=== PATIENT | female | born 1990 | race African-American/Black ===

== ENCOUNTER 2016-11-10 02:56 | Emergency (ER) | payer OTHER ==
[2016-11-10 03:28] LABS: Bilirubin Negative (Negative); Blood, Urine Large (Negative); Glucose, Urine (Dipstick) Negative (Negative); Ketone, Urine Negative (Negative); Nitrite Negative (Negative); Protein, Urine (Dipstick) Negative (Neg-Trace); Urobilinogen 0.2 mg/dL (0.2-1.0)
[2016-11-10 03:31] LABS: Bacteria/HPF None Seen HPF (None Seen); Hyaline Casts/LPF 4-6 HYALINE CAST LPF (0-3 Hyaline); RBC/HPF 21-50 HPF (0-3); Squamous Epithelial 0-3 HPF (0-3); WBC/HPF 21-50 HPF (0-3)
[2016-11-10 03:32] LABS: #Basophils 0.1 thou/uL (0.0-0.2); #Eosinphils 0.2 thou/uL (0.0-0.7); #Lymphocytes 3.2 thou/uL (1.20-3.40); #Monocytes 0.5 thou/uL (0.11-0.59); #Neutrophils 5.1 thou/uL (1.40-6.50); %Basophils 1.5 % (0.0-1.0); %Eosinophils 1.9 % (0.0-10.0); %Lymphocytes 34.7 % (21.0-51.0); %Monocytes 5.8 % (0.0-10.0); Hematocrit 42.8 % (36.0-47.0); Mean Platelet Volume 7.5 fL (7.4-10.4); Red Blood Cell (RBC) Count 4.46 mill/uL (4.20-5.40); White Blood Cell (WBC) Count 9.1 thou/uL (4.8-10.8)
== END 2016-11-10 05:30 | disposition home or self-care (01) ==
LOC: ERS 02:56
DX: N92.6 Irregular menstruation, unspecified (principal); N39.0 Urinary tract infection, site not specified; F41.9 Anxiety disorder, unspecified; F17.210 Nicotine dependence, cigarettes, uncomplicated
CPT/HCPCS: 36415; 81003; 81015; 81025; 85025; 86850; 86900; 86901; 99284

== ENCOUNTER 2017-08-15 16:21 | Emergency (ER) | payer BC, OTHER ==
[2017-08-15] MEDS ORDERED: Metoclopramide HCl 10 MG/2 ML VIAL ONE (16:57)
[2017-08-15] MEDS ORDERED: diphenhydrAMINE 50 MG/ML VIAL ONE (16:57)
[2017-08-15] MEDS ORDERED: Ketorolac Tromethamine 30 MG/ML VIAL ONE (16:57)
[2017-08-15] MEDS ORDERED: Acetaminophen 500 MG TAB ONE (16:57)
[2017-08-15 17:07] LABS: BHCG - Serum Negative (NEGATIVE); Pregs Control Background? CLEAR/WHITE (CLR/WHITE); Pregs Control Bar Appear? YES (CONTROL BAR)
== END 2017-08-15 18:15 | disposition home or self-care (01) ==
LOC: SCSER 16:21
DX: R51 Headache (principal); N92.6 Irregular menstruation, unspecified
CPT/HCPCS: 84703; 96365; 96375; J1200; J1885; J2765

== ENCOUNTER 2017-08-28 21:16 | Emergency (ER) | payer OTHER ==
[2017-08-28 22:04] LABS: Bilirubin Negative (Negative); Blood, Urine Large (Negative); Clarity CLOUDY (Clear); Glucose, Urine (Dipstick) Negative (Negative); Leukocyte Large (Negative); Nitrite Negative (Negative); Protein, Urine (Dipstick) 30 mg/dL (Neg-Trace); Specific Gravity, Urine 1.027 (1.002-1.036)
[2017-08-28 22:05] LABS: Pregnancy Test - Urine (BHCG) Negative (Negative); Pregu Control Background? CLEAR/WHITE (CLR/WHITE); Pregu Control Bar Appear? YES (CONTROL BAR); Specific Gravity 1.027 (1.002-1.036)
[2017-08-28 22:06] LABS: Bacteria/HPF Rare-Few HPF (None Seen); Hyaline Casts/LPF 4-6 HYALINE CAST LPF (0-3 Hyaline); Pathc Cast-AUWi Flag 1.45 (0-2.49); RBC/HPF GREATER THAN 50-TNTC HPF (0-3)
[2017-08-28 22:14] LABS: Hemoglobin 12.2 g/dL (12.0-16.0); Mean Corpuscular HGB CONC 33.2 g/dL (32.0-36.0); Mean Corpuscular Volume 90.5 fL (78.0-98.0); Mean Platelet Volume 8.1 fL (7.4-10.4); Platelet Count 183 thou/uL (130-400); RBC Distribution Width 14.2 % (11.5-14.5); Red Blood Cell (RBC) Count 4.05 mill/uL (4.20-5.40); White Blood Cell (WBC) Count 13.4 thou/uL (4.8-10.8)
[2017-08-28 22:29] LABS: Band 14 % (5-11); Eosinophils 1 % (0-10); Lymphocytes 8 % (21-51); MDiff Complete? YES; Monocytes 5 % (0-10); Neutrophil 72 % (42-75); Vacuoles SLIGHT
[2017-08-28 22:34] LABS: Anion Gap 10 mmol/L (10-20); BUN (Urea Nitrogen) 7 mg/dL (7.0-18.7); Calc. Creatinine Clearance 0 mL/min (70-130); Calcium 8.9 mg/dL (7.8-10.44); Carbon Dioxide 27 mmol/L (22-29); Chloride 106 mmol/L (98-107); Estimated GFR-MDRD Greater than 90; Glucose 90 mg/dL (70-105); Lipase 11 U/L (8-78); Potassium 3.6 mmol/L (3.5-5.1); Sodium 139 mmol/L (136-145)
== END 2017-08-28 22:50 | disposition left against medical advice (07) ==
LOC: ERS 21:16
DX: Z53.21 Procedure and treatment not carried out due to patient leaving prior to being seen by health care provider (principal)
CPT/HCPCS: 36415; 80048; 81003; 81015; 81025; 83690; 85025

== ENCOUNTER 2017-08-28 23:05 | Inpatient (IN) | payer BC, OTHER, SELFPAY ==
[2017-08-28] MEDS ORDERED: Morphine 4 MG/ML Carpuject ONE (23:26)
[2017-08-28 23:47] LABS: ALT (SGPT) 11 U/L (8-55); AST (SGOT) 11 U/L (5-34); Albumin 4.1 g/dL (3.5-5.0); Alkaline Phosphatase 70 U/L (40-150); Bilirubin, Direct 0.3 mg/dL (0.1-0.3); Bilirubin, Total 0.7 mg/dL (0.2-1.2); Protein, Total 6.8 g/dL (6.0-8.3)
[2017-08-29] MEDS ORDERED: Morphine 4 MG/ML Carpuject ONE (00:06)
[2017-08-29] MEDS ORDERED: Ondansetron HCl/PF 4 MG/2 ML Vial ONE ×2 (00:06→03:06)
[2017-08-29] MEDS ORDERED: Ciprofloxacin Lactate/D5W 400 mg/200 ml Premix ONE (02:24)
[2017-08-29] MEDS ORDERED: metroNIDAZOLE 500 MG/100 ML BAG ONE (03:39)
[2017-08-29] MEDS ORDERED: Sodium Chloride 0.9% 1,000 ML IV SCH (04:29)
[2017-08-29] MEDS ORDERED: Ondansetron HCl/PF 4 MG/2 ML Vial IVP PRN (04:29)
[2017-08-29] MEDS ORDERED: Ondansetron ODT 4 MG TAB SL PRN (04:29)
[2017-08-29] MEDS: Sodium Chloride 0.9% 1,000 ML IV SCH ×3 (04:46→20:16)
[2017-08-29] MEDS ORDERED: metroNIDAZOLE 500 MG in Premix Bag 1 BAG IVPB SCH (09:00)
--- NOTE | 2017-08-29 09:10 | HP ---
PRIMARY CARE PHYSICIAN: The patient currently does not have a primary care physician. CHIEF COMPLAINT: Abdominal pain. HISTORY OF PRESENT ILLNESS: Ms. Perez is a pleasant 27-year-old female that has a history significa nt for anxiety and she has had a previous ectopic years ago. She was in her usual state of health until about a week ago. She says she started having symptoms, which she thought could be due to gastroenteritis. She says she was having some abdominal discomfort and loose stools and she had taken some Pepto-Bismol, but it did not really help very much. During this time, she says she was st ill able to eat; however, she says she was eating a lot less than usual. Then, on Tuesday morning, jane iesha says she woke up with severe abdominal pain which she says she really cannot describe it other than it was greater than a 10/10. She says it was both sharp and cramping and more or less constant. It did not radiate anywhere. She says she still was able to eat. In fact, she was getting ready to ge [employer] up to go to work and says that she went to [employer] and got some food and was able to eat it and melissa p it down. There was no nausea or vomiting. She says that she continued to have a loose stool, but it was a dark green in color. She says that the pain was so bad she could barely stand or walk and p ut weight on her feet and as a result of this, she came to the ER for evaluation. In the ER, she had lab work done which was all essentially negative. She had a CT scan of the abdomen and pelvis, whic h was essentially normal for any evidence of appendicitis. The gallbladder looked normal and there w as some evidence of possible small bowel enteritis and she is being placed in observation as a result of this. The patient says that she has lost 10 pounds over the last week. She was originally said that she was able to eat, but then she backtracked and said that she has not eaten that much, but oth erwise no other symptoms. She does admit to taking some Advil and Motrin for headache that she had r ecently and she is a smoker. REVIEW OF SYSTEMS: All systems are reviewed and are negative except for that mentioned in the histor y of present illness. PAST MEDICAL HISTORY: Significant for anxiety. PAST SURGICAL HISTORY: She has had a right salpingectomy. ALLERGIES: No known drug allergies. SOCIAL HISTORY: She is single, has no children. She smokes a pack a day for the last 10 years. She did occasionally drinks. FAMILY HISTORY: Significant for heart disease and father that had hypertension and diabetes mellitus . CURRENT MEDICATIONS: None. PHYSICAL EXAMINATION: VITAL SIGNS: Blood pressure was 130/80, heart rate 87, respiratory rate of 18, temperature was 100.2 . GENERAL: She is a well-developed, well-nourished. She does not appear to be in any distress. HEENT: Pupils are equal, round, and reactive. Extraocular muscles are intact. Sclerae are anicteri c. Her throat, there is no erythema, no exudates. NECK: No adenopathy, no bruits. LUNGS: Clear to auscultation. I did not appreciate any wheezing or rales. CARDIOVASCULAR: She had a normal S1, S2. I did not appreciate an S3 or S4. No murmurs, no clicks, no rubs. ABDOMEN: Soft. She had some diffuse abdominal tenderness, but it was primarily in the upper quadran ts and in the epigastric region, it seemed to be the worse. There was no rebound and no involuntary guarding. There was no organomegaly and bowel sounds were present. EXTREMITIES: There is no edema. She had good distal pulses. NEUROLOGICAL: Grossly nonfocal. Her cranial nerves were intact and her muscle strength in both her upper and lower extremities are intact. SKIN AND INTEGUMENT: There are no skin changes. No rash. LABORATORY DATA AND IMAGING: White blood cell count 13.4, hemoglobin 12.2, hematocrit is 36.7, plate let count is 183. She did have 14% bands. Sodium was 139, potassium 3.6, chloride is 106, CO2 is 27 , BUN of 7, creatinine 0.79, glucose was 90. Lactic acid 0.9, calcium 8.9, total bilirubin was 0.7, AST 11, ALT 11, lipase was 11. She had a UA that had large blood and large leukocyte esterase, too n umerous to count RBCs. CT scan again was reported to be essentially negative. Also, there was no me ntion of any kidney stones. ASSESSMENT AND PLAN: This is a pleasant 27-year-old female that presents to the emergency room [facility] of severe abdominal pain, which has been more or less subacute starting with symptoms consiste nt with gastroenteritis and then culminating in severe more or less epigastric pain. Her lab work is essentially all negative except for slightly elevated white blood cell count. CT scan was consisten t with an enteritis. She will be placed in observation primarily because her pain is out of proporti on with what would normally be considered associated with a gastroenteritis. We will monitor her ove rnight and reevaluate her at that time. Also given her history of smoking and NSAID use, we will als o place her on IV Protonix in the event that this is some type of peptic ulcer disease. Also noted t hat she had some hematuria on her urinalysis; however, her CT scan did not demonstrate any stones; ho wever, it is possible that she may have [id number] stone. Therefore, we will continue to keep this in the differential; however, the distribution of her pain is not consistent with nephrolithiasi s or kidney disease. Otherwise, we will monitor overnight and if her symptoms continue, then conside r a GI evaluation in the a.m. The urine test was negative.
[2017-08-29] MEDS ORDERED: Acetaminophen 325 MG TAB PO PRN (09:19)
[2017-08-29] MEDS ORDERED: Ondansetron ODT 4 MG TAB PO PRN (09:19)
[2017-08-29] MEDS ORDERED: Mag-Al Plus 1200 MG/1200 MG/120 MG/30 ML UDCUP PO PRN (09:19)
[2017-08-29] MEDS ORDERED: Pantoprazole 40 MG VIAL IVP SCH (09:30)
[2017-08-29] MEDS: metroNIDAZOLE 500 MG in Premix Bag 1 BAG IVPB SCH ×2 (10:51→17:43)
--- NOTE | 2017-08-29 12:45 | CT ---
PRELIMINARY REPORT/[facility]/EMERGENTY AFTER-HOURS PROCEDURE CT Abdomen and Pelvis With Intravenous Contrast EXAM DATE/TIME: 08/29/2017 12:56 AM CLINICAL HISTORY: 27 years old, female; Pain; Abdominal pain; Patient HX: Patient presents for evaluation of abdominal pain, patient presents for evaluation of abdominal distention. TECHNIQUE: Axial computed tomography images of the abdomen and pelvis with intravenous contrast. Coronal reformatted images were created and reviewed. CONTRAST: 85 ml of [id number] administered intravenously. COMPARISON: No relevant prior studies available. FINDINGS: Lower thorax: No acute findings. ABDOMEN: Liver: Normal. No mass. Gallbladder and bile ducts: Normal. No calcified stones. No ductal dilation. Pancreas: Normal. No ductal dilation. Spleen: Normal. No splenomegaly. Adrenals: Normal. No mass. Kidneys and ureters: Normal. No hydronephrosis. Stomach and bowel: Multiple small bowel loops with moderate approximately 6-8 mm wall thickening in t he left abdomen. No evidence of bowel obstruction. Appendix: Cecum low within the pelvis, appendix not definitely seen. PELVIS: Bladder: Unremarkable as visualized. Reproductive: Uterus appears within normal limits. Ovoid 4 cm hypodensity in left ovary. ABDOMEN and PELVIS: Intraperitoneal space: Normal. No free air. No significant fluid collection. Bones/joints: No acute fracture. No dislocation. Soft tissues: Unremarkable. Vasculature: Normal. No abdominal aortic aneurysm. Lymph nodes: Normal. No enlarged lymph nodes. IMPRESSION: 1. Findings suspicious for moderate inflammation of the left abdominal small bowel- enteritis. 2. No evidence of bowel obstruction. 3. Cecum low within the pelvis, appendix not definitely seen. 4. Ovoid 4 cm left ovarian cyst. Thank you for allowing us to participate in the care of your patient. Dictated and Authenticated by: Robin Samuels MD 08/29/2017 2:06 AM Central Time ([place] & [place]) FINAL REPORT CT ABDOMEN AND PELVIS WITH CONTRAST: HISTORY: Abdominal pain. Elevated white count. COMPARISON: CT abdomen and pelvis from 2008. FINDINGS: Findings and impression are concordant with the preliminary report. POS: [facility]
[2017-08-29] MEDS: Pantoprazole 40 MG VIAL IVP SCH (20:09)
[2017-08-29] MEDS: Ondansetron HCl/PF 4 MG/2 ML Vial IVP PRN (21:56)
[2017-08-30] MEDS: metroNIDAZOLE 500 MG in Premix Bag 1 BAG IVPB SCH ×3 (03:49→18:03)
[2017-08-30] MEDS: Sodium Chloride 0.9% 1,000 ML IV SCH ×3 (03:49→22:23)
[2017-08-30] MEDS: Ondansetron HCl/PF 4 MG/2 ML Vial IVP PRN ×2 (03:49→15:33)
[2017-08-30 05:14] LABS: #Eosinphils 0.1 thou/uL (0.0-0.7); #Lymphocytes 0.9 thou/uL (1.20-3.40); #Monocytes 0.5 thou/uL (0.11-0.59); #Neutrophils 4.3 thou/uL (1.40-6.50); %Basophils 0.1 % (0.0-1.0); %Eosinophils 0.9 % (0.0-10.0); %Lymphocytes 15.2 % (21.0-51.0); %Monocytes 9.2 % (0.0-10.0); %Neutrophils 74.6 % (42.0-75.0); Hemoglobin 10.1 g/dL (12.0-16.0); Mean Corpuscular HGB CONC 32.3 g/dL (32.0-36.0); Mean Corpuscular Hemoglobin 29.6 pg (27.0-31.0); Mean Corpuscular Volume 91.6 fL (78.0-98.0); Mean Platelet Volume 8.5 fL (7.4-10.4); Platelet Count 155 thou/uL (130-400); RBC Distribution Width 13.9 % (11.5-14.5); Red Blood Cell (RBC) Count 3.41 mill/uL (4.20-5.40); White Blood Cell (WBC) Count 5.7 thou/uL (4.8-10.8)
[2017-08-30 05:57] LABS: Anion Gap 12 mmol/L (10-20); BUN (Urea Nitrogen) 4 mg/dL (7.0-18.7); Calc. Creatinine Clearance 86 mL/min (70-130); Calcium 8.4 mg/dL (7.8-10.44); Carbon Dioxide 22 mmol/L (22-29); Chloride 107 mmol/L (98-107); Estimated GFR-MDRD Greater than 90; Glucose 89 mg/dL (70-105); Potassium 3.2 mmol/L (3.5-5.1); Sodium 138 mmol/L (136-145)
[2017-08-30] MEDS: Pantoprazole 40 MG VIAL IVP SCH ×2 (08:30→21:30)
--- NOTE | 2017-08-30 10:05 | CON ---
DATE OF CONSULTATION: 08/30/2017 REASON FOR CONSULTATION: Bradycardia. HISTORY OF PRESENT ILLNESS: Ms. Perez is a very pleasant 27-year-old - [place] female, who comes to the hospital for abdominal pain. She was diagnosed with an enteritis and has been on pain medications including morphine as well as antibiotics. Vital signs were drawn overnight at about 4-5 a.m. and she was noted to be bradycardic in the 40s. So, an EKG was done and Cardiology consulted. The EKG showed sinus bradycardia in the mid 40s. She has a very short FL interval, but no clear evidence of an AV block. She is completely asymptomatic. She states that they worked her up for this and they kept asking if she was fine. She stated she felt just fine. She denies any lightheadedness , no syncope or presyncope. She has never had a syncopal spell in the past. PAST MEDICAL HISTORY: Anxiety. PAST SURGICAL HISTORY: Right salpingectomy. ALLERGIES: No known drug allergies. OUTPATIENT MEDICATIONS: None. SOCIAL HISTORY: Smokes a pack a day for the last 10 years. Drinks occasionally. No drug use. FAMILY HISTORY: Heart disease in father, hypertension, and diabetes. REVIEW OF SYSTEMS: A 12-point review of systems was done and was all negative unless stated in the history of present illness. PHYSICAL EXAMINATION: VITAL SIGNS: Temperature 98.3, pulse 51, respiratory rate 14, satting 96% on room air, blood pressure 116/71. GENERAL: Awake, alert, oriented x3, in no distress. HEENT: Normocephalic, atraumatic. NECK: Supple. LUNGS: Clear. CARDIOVASCULAR: S1 and S2, no S3 or S4, no murmurs. ABDOMEN: Soft with good bowel sounds. EXTREMITIES: No edema. SKIN: Warm and dry. LABORATORY WORK: Reviewed. CBC was reviewed. Chemistries were reviewed. Her potassium was low at 3.2, otherwise unremarkable. EKG was reviewed, sinus bradycardia. CT of abdomen and pelvis was reviewed. ASSESSMENT AND PLAN: Sinus bradycardia: This is while she was sleeping; however, at rest on my evaluation, she was fully awake and she was bradycardic in the mid 40s, but completely asymptomatic. I stood her up and walked her around; then her heart rate just by standing up went to 55-60 and then when walking around it went up to the 70. She felt just fine doing so. No lightheadedness and completely asymptomatic. At this point, this is most likely related to morphine or this may just be her baseline. Because she is asymptomatic, I do not think there is any further workup that will be needed. We will get an echocardiogram and repeat an EKG for now, and if this is unremarkable, I think there are no further recommendations from the cardiac standpoint. Thank you for this particular patient. We will follow. YASMIN
[2017-08-30 11:12] LABS: Magnesium 1.7 mg/dL (1.6-2.6); Phosphorus 2.2 mg/dL (2.3-4.7)
--- NOTE | 2017-08-30 12:34 | EKG ---
Test Reason : STAT Blood Pressure : / mmHG Vent. Rate : 046 BPM Atrial Rate : 023 BPM P-R Int : 080 ms QRS Dur : 128 ms QT Int : 492 ms P-R-T Axes : 000 -35 085 degrees QTc Int : 430 ms Marked sinus bradycardia with short OH with Fusion complexes Left axis deviation Non-specific intra-ventricular conduction block Possible Anterolateral infarct , age undetermined Abnormal ECG No previous ECGs available Confirmed by JESSICA SCHULZ, DR. Marie (4) on 08/30/2017 12:34:30 PM Referred By: VIRAL Confirmed By:DR. Frank LOPEZ MD
--- NOTE | 2017-08-30 12:35 | EKG ---
Test Reason : Blood Pressure : / mmHG Vent. Rate : 052 BPM Atrial Rate : 052 BPM P-R Int : 128 ms QRS Dur : 074 ms QT Int : 452 ms P-R-T Axes : 078 090 060 degrees QTc Int : 420 ms Sinus bradycardia with sinus arrhythmia Rightward axis Borderline ECG When compared with ECG of 30-AUG-2017 10:44, (Unconfirmed) Fusion complexes are no longer Present Left bundle branch block is no longer Present Confirmed by JESSICA SCHULZ, SVero (4) on 08/30/2017 12:35:09 PM Referred By: WILLA Confirmed By:DR. Frank LOPEZ MD
--- NOTE | 2017-08-30 12:35 | EKG ---
Test Reason : Blood Pressure : / mmHG Vent. Rate : 046 BPM Atrial Rate : 046 BPM P-R Int : 000 ms QRS Dur : 126 ms QT Int : 486 ms P-R-T Axes : 096 -31 087 degrees QTc Int : 425 ms Marked sinus bradycardia with Fusion complexes Left axis deviation Left bundle branch block Abnormal ECG No previous ECGs available Confirmed by JESSICA SCHULZ, DR. Marie (4) on 08/30/2017 12:34:56 PM Referred By: WILLA Confirmed By:DR. Frank LOPEZ MD
[2017-08-30] MEDS ORDERED: Potassium Chloride 20 MEQ TAB PO SCH (12:45)
[2017-08-30] MEDS: K-Phos Neutral 250 MG TAB PO SCH (18:02)
[2017-08-30] MEDS: cefTRIAXone\\ROCEPHIN 1 GM in Sodium Chloride 0.9% 100 ML IVPB SCH (18:02)
[2017-08-30] MEDS: Potassium Chloride 20 MEQ TAB PO SCH (18:02)
--- NOTE | 2017-08-30 20:31 | PDOC.PN ---
- Subjective Encounter Start Date: 08/30/17 Encounter Start Time: 14:00 Patient seen and examined for Acute Gastroenteritis. Abd pain improving. No new complaints. No overnight events - Objective Resuscitation Status: Resuscitation Status FULL:Full Resuscitation MAR Reviewed: Yes Vital Signs & Weight: Vital Signs (12 hours) Temp Pulse Resp BP BP Pulse Ox 08/30/17 20:14 98.4 F 50 L 20 120/77 98 08/30/17 15:07 97.5 F L 50 L 20 135/77 100 08/30/17 12:36 98 08/30/17 11:36 97.6 F 49 L 16 148/99 H 100 08/30/17 08:30 98.3 F 51 L 14 Weight Admit Weight 94 lb 12.78 oz Weight 112 lb 11.2 oz I&O: 08/29/17 08/30/17 08/31/17 06:59 06:59 06:59 Intake Total 615 5780 2485 Output Total 900 200 Balance 615 4380 2285 Result Diagrams: 08/30/17 04:39 08/30/17 04:39 Additional Labs: Laboratory Tests 08/30/17 04:39 Phosphorus 2.2 L Magnesium 1.7 Phys Exam - Physical Examination Constitutional: NAD Respiratory: no wheezing, no rales, no rhonchi, clear to auscultation bilateral Cardiovascular: RRR, no rub Gastrointestinal: soft, non-tender, no distention, positive bowel sounds Musculoskeletal: no edema Neurological: moves all 4 limbs Psychiatric: A&O x 3 Dx/Plan (1) Acute infective gastroenteritis Code(s): A09 - INFECTIOUS GASTROENTERITIS AND COLITIS, UNSPECIFIED Status: Acute (2) Sinus bradycardia Code(s): R00.1 - BRADYCARDIA, UNSPECIFIED Status: Acute (3) Electrolyte abnormality Code(s): E87.8 - OTH DISORDERS OF ELECTROLYTE AND FLUID BALANCE, NEC Status: Acute Comment: Hypokalemia/ Hypophosphatemia (4) Anxiety Code(s): F41.9 - ANXIETY DISORDER, UNSPECIFIED Status: Chronic - Plan DVT proph w/SCDs * Await Echo * Cardio input appreciated * Cont Flagyl * Change Cipro to Cefriaxone (Nausea after Cipro) * Replace electrolytes * Cont IVF * AM labs * Advance diet Review of Systems - Review of Systems Respiratory: negative: Cough, Dry, Shortness of Breath, Hemoptysis, SOB with Excertion, Pleuritic Pain, Sputum, Wheezing Cardiovascular: negative: chest pain, palpitations, orthopnea, paroxysmal nocturnal dyspnea, edema, light headedness, other Gastrointestinal: Abdominal Pain. negative: Nausea, Vomiting, Diarrhea, Constipation, Melena, Hematochezia, Other - Medications/Allergies Allergies/Adverse Reactions: Allergies Allergy/AdvReac Type Severity Reaction Status Date / Time No Known Drug Allergies Allergy Verified 01/28/14 14:27 Medications: Current Medications Acetaminophen (Tylenol) 650 mg PO Q4H PRN PRN Reason: Headache/Fever or Pain Al Hydroxide/Mg Hydroxide (Maalox Plus) 30 ml PO DAILYPRN PRN PRN Reason: Heartburn or Indigestion Sodium Chloride (Normal Saline 0.9%) 1,000 mls @ 125 mls/hr IV .Q8H [facility] Last Admin: 08/30/17 11:44 Dose: 1,000 mls Metronidazole 500 mg/ Device 100 mls @ 100 mls/hr IVPB 0300,1100,1900 [facility] Last Admin: 08/30/17 18:03 Dose: 100 mls Ceftriaxone Sodium 1 gm/ (Sodium Chloride) 100 mls @ 200 mls/hr IVPB Q24HR [facility] Last Admin: 08/30/17 18:02 Dose: 100 mls Morphine Sulfate (Morphine) 2 mg SLOW IVP Q4H PRN PRN Reason: Pain Last Admin: 08/30/17 11:48 Dose: 2 mg Ondansetron HCl (Zofran Odt) 4 mg PO Q6H PRN PRN Reason: Nausea/Vomiting Ondansetron HCl (Zofran) 4 mg IVP Q6H PRN PRN Reason: Nausea/Vomiting Last Admin: 08/30/17 15:33 Dose: 4 mg Pantoprazole Sodium (Protonix) 40 mg IVP Q12HR [facility] Last Admin: 08/30/17 08:30 Dose: 40 mg Phosphorus (Kphos Neutral) 250 mg PO TID-[facility] Last Admin: 08/30/17 18:02 Dose: 250 mg Potassium Chloride (K-Dur) 20 meq PO BID-[facility] Stop: 08/31/17 08:01 Last Admin: 08/30/17 18:02 Dose: 20 meq Sodium Chloride (Flush - Normal Saline) 10 ml IVF PRN PRN PRN Reason: Saline Flush
[2017-08-30] MEDS ORDERED: Promethazine HCl 25 MG/ML VIAL IVPB SCH (21:30)
[2017-08-30] MEDS ORDERED: Promethazine HCl 12.5 MG in Sodium Chloride 0.9% 50 ML IVPB SCH (21:45)
[2017-08-31] MEDS: Sodium Chloride 0.9% 1,000 ML IV SCH ×3 (00:55→09:19)
[2017-08-31] MEDS: metroNIDAZOLE 500 MG in Premix Bag 1 BAG IVPB SCH ×3 (02:52→18:24)
[2017-08-31 05:00] LABS: Anion Gap 13 mmol/L (10-20); BUN (Urea Nitrogen) 4 mg/dL (7.0-18.7); Calc. Creatinine Clearance 104 mL/min (70-130); Carbon Dioxide 20 mmol/L (22-29); Chloride 109 mmol/L (98-107); Estimated GFR-MDRD Greater than 90; Glucose 78 mg/dL (70-105); Phosphorus 2.4 mg/dL (2.3-4.7); Potassium 3.7 mmol/L (3.5-5.1); Sodium 138 mmol/L (136-145)
[2017-08-31 06:56] VITALS: BMI 20.5
[2017-08-31] MEDS: K-Phos Neutral 250 MG TAB PO SCH ×3 (09:19→16:48)
[2017-08-31] MEDS: Potassium Chloride 20 MEQ TAB PO SCH (09:19)
[2017-08-31] MEDS: Ondansetron HCl/PF 4 MG/2 ML Vial IVP PRN (09:19)
[2017-08-31] MEDS: Pantoprazole 40 MG VIAL IVP SCH ×2 (09:19→20:57)
--- NOTE | 2017-08-31 11:52 | PDOC.CTH ---
Cardiology Progress Note - Subjective She is doing well. No syncope, presyncope, lightheadedness. - Objective Vital Signs Temp Pulse Resp BP BP Pulse Ox 08/31/17 11:31 98.0 F 60 16 121/83 100 08/31/17 08:00 98.1 F 48 L 16 100 08/31/17 07:31 98.1 F 48 L 16 109/70 100 08/31/17 03:53 98.1 F 51 L 16 133/53 L 99 08/30/17 23:59 98.2 F 50 L 16 122/72 99 Admit Weight 94 lb 12.78 oz Weight 112 lb 08/30/17 08/31/17 09/01/17 06:59 06:59 06:59 Intake Total 5780 4665 Output Total 900 200 Balance 4880 4465 - Physical Examination General/Neuro: alert & oriented x3, NAD Neck: no JVD present Lungs: CTA, unlabored respirations Heart: RRR Abdomen: NT/ND Extremities: other: (no edema) - Labs Result Diagrams: 08/30/17 04:39 08/31/17 04:24 - Assessment/Plan 1. Bradycardia, sinus, asymptomatic. 2. Enteritis. PLAN: - Asymptomatic from her bradycardia. - Normal Echo. - No new reds. - Will sign off. Please call with any questions.
--- NOTE | 2017-08-31 14:17 | PDOC.PN ---
- Subjective Encounter Start Date: 08/31/17 Encounter Start Time: 14:12 Subjective: slight abd pain but no vomiting or diarrhea - Objective Resuscitation Status: Resuscitation Status FULL:Full Resuscitation MAR Reviewed: Yes Vital Signs & Weight: Vital Signs (12 hours) Temp Pulse Resp BP BP Pulse Ox 08/31/17 12:00 100 08/31/17 11:31 98.0 F 60 16 121/83 100 08/31/17 08:00 98.1 F 48 L 16 100 08/31/17 07:31 98.1 F 48 L 16 109/70 100 08/31/17 03:53 98.1 F 51 L 16 133/53 L 99 Weight Admit Weight 94 lb 12.78 oz Weight 112 lb I&O: 08/30/17 08/31/17 09/01/17 06:59 06:59 06:59 Intake Total 5780 4665 Output Total 900 200 Balance 4880 4465 Result Diagrams: 08/30/17 04:39 08/31/17 04:24 Additional Labs: Laboratory Tests 08/30/17 08/30/17 08/31/17 04:39 04:39 04:24 Potassium 3.2 L 3.7 Phosphorus 2.4 Magnesium 1.7 labs reviewed Phys Exam - Physical Examination Constitutional: NAD HEENT: PERRLA, moist MMs, sclera anicteric, oral pharynx no lesions Neck: no nodes, no JVD, supple, full ROM Respiratory: no wheezing, no rales, no rhonchi, clear to auscultation bilateral Cardiovascular: RRR, no significant murmur Gastrointestinal: soft, no distention, positive bowel sounds TTP epigastrium Musculoskeletal: no edema, pulses present Neurological: non-focal, normal sensation, moves all 4 limbs Psychiatric: normal affect, A&O x 3 Skin: no rash Dx/Plan (1) Acute infective gastroenteritis Code(s): A09 - INFECTIOUS GASTROENTERITIS AND COLITIS, UNSPECIFIED Status: Acute (2) Sinus bradycardia Code(s): R00.1 - BRADYCARDIA, UNSPECIFIED Status: Acute Comment: asymptomatic (3) Electrolyte abnormality Code(s): E87.8 - OTH DISORDERS OF ELECTROLYTE AND FLUID BALANCE, NEC Status: Resolved Comment: Hypokalemia/ Hypophosphatemia (4) Anxiety Code(s): F41.9 - ANXIETY DISORDER, UNSPECIFIED Status: Chronic - Plan advance diet as tolerated.DC home if tolerates on PO ABx -: cont IV ABx empoirically -: ECHO WNL. HR better withoit intervention.monitor -: reduce IVF. -: Potassium/Mag normla today * . Review of Systems - Review of Systems Constitutional: weakness ENT: negative: Ear Pain, Ear Discharge, Nose Pain, Nose Discharge, Nose Congestion, Mouth Pain, Mouth Swelling, Throat Pain, Throat Swelling, Other Respiratory: negative: Cough, Dry, Shortness of Breath, Hemoptysis, SOB with Excertion, Pleuritic Pain, Sputum, Wheezing Cardiovascular: negative: chest pain, palpitations, orthopnea, paroxysmal nocturnal dyspnea, edema, light headedness, other Gastrointestinal: Abdominal Pain. negative: Nausea, Vomiting, Diarrhea, Constipation, Melena, Hematochezia, Other Genitourinary: negative: Dysuria, Frequency, Incontinence, Hematuria, Retention , Other Musculoskeletal: negative: Neck Pain, Shoulder Pain, Arm Pain, Back Pain, Hand Pain, Leg Pain, Foot Pain, Other Skin: negative: Rash, Lesions, Mike, Bruising, Other Neurological: negative: Weakness, Numbness, Incoordination, Change in Speech, Confusion, Seizures, Other - Medications/Allergies Allergies/Adverse Reactions: Allergies Allergy/AdvReac Type Severity Reaction Status Date / Time No Known Drug Allergies Allergy Verified 01/28/14 14:27 Medications: Current Medications Acetaminophen (Tylenol) 650 mg PO Q4H PRN PRN Reason: Headache/Fever or Pain Al Hydroxide/Mg Hydroxide (Maalox Plus) 30 ml PO DAILYPRN PRN PRN Reason: Heartburn or Indigestion Metronidazole 500 mg/ Device 100 mls @ 100 mls/hr IVPB 0300,1100,1900 [facility] Last Admin: 08/31/17 12:57 Dose: 100 mls Ceftriaxone Sodium 1 gm/ (Sodium Chloride) 100 mls @ 200 mls/hr IVPB Q24HR [facility] Last Admin: 08/30/17 18:02 Dose: 100 mls Sodium Chloride (Normal Saline 0.9%) 1,000 mls @ 50 mls/hr IV .Q20H [facility] Last Admin: 08/31/17 09:19 Dose: Not Given Morphine Sulfate (Morphine) 2 mg SLOW IVP Q4H PRN PRN Reason: Pain Last Admin: 08/30/17 21:29 Dose: 2 mg Ondansetron HCl (Zofran Odt) 4 mg PO Q6H PRN PRN Reason: Nausea/Vomiting Ondansetron HCl (Zofran) 4 mg IVP Q6H PRN PRN Reason: Nausea/Vomiting Last Admin: 08/31/17 09:19 Dose: 4 mg Pantoprazole Sodium (Protonix) 40 mg IVP Q12HR [facility] Last Admin: 08/31/17 09:19 Dose: 40 mg Phosphorus (Kphos Neutral) 250 mg PO TID-[facility] Last Admin: 08/31/17 12:11 Dose: 250 mg Sodium Chloride (Flush - Normal Saline) 10 ml IVF PRN PRN PRN Reason: Saline Flush
[2017-08-31] MEDS: cefTRIAXone\\ROCEPHIN 1 GM in Sodium Chloride 0.9% 100 ML IVPB SCH (16:48)
[2017-09-01] MEDS: metroNIDAZOLE 500 MG in Premix Bag 1 BAG IVPB SCH ×2 (03:05→13:40)
[2017-09-01] MEDS: Sodium Chloride 0.9% 1,000 ML IV SCH (03:05)
[2017-09-01] MEDS: Pantoprazole 40 MG VIAL IVP SCH (11:00)
[2017-09-01] MEDS: K-Phos Neutral 250 MG TAB PO SCH ×2 (11:10→13:41)
[2017-09-01] MEDS: cefTRIAXone\\ROCEPHIN 1 GM in Sodium Chloride 0.9% 100 ML IVPB SCH (15:24)
[2017-09-01 15:36] VITALS: BP 122/75; TEMP 98.4
--- NOTE | 2017-09-02 09:00 | DIS ---
DATE OF ADMISSION: 08/29/2017 DATE OF DISCHARGE: 09/01/2017 PRIMARY CARE PHYSICIAN: Dr. Jaida Rayo. DISCHARGE DIAGNOSES: 1. Infectious gastroenteritis, likely bacterial. 2. Sinus bradycardia, asymptomatic. 3. Hypokalemia and hypophosphatemia, resolved. 4. History of anxiety. DISCHARGE MEDICATIONS: As follows, metronidazole 500 mg p.o. t.i.d. for 5 days, Augmentin 875/125 on e tablet p.o. b.i.d. for 5 days, and Florastor 250 mg daily for 10 days. PROCEDURES DONE IN THE HOSPITAL: CT scan of the abdomen and pelvis upon presentation, which shows fi ndings consistent with enteritis in the left small bowel without obstruction or any other acute luna es. Transthoracic echocardiogram, which is unremarkable. Ejection fraction is 55%-60%. INHOUSE CONSULTATIONS: Cardiology, Dr. Kelley for sinus bradycardia. HISTORY OF PRESENT ILLNESS: Ms. Perez is a very pleasant 27-year-old female with past medical histo ry only significant for some anxiety, who presented to the emergency room with complaints of abdomina l pain. Upon presentation, she had leukocytosis with WBCs of 13.4 and 14% bands. She had lactic aci d normal at 0.9. Liver enzymes unremarkable. Lipase was normal. Urinalysis had large blood and lar ge leukocyte esterase. CT scan was done, which showed possible enteritis on the left side. She was admitted with a presumptive diagnosis of acute versus subacute gastroenteritis. Please see admission history and physical for further detail. HOSPITAL COURSE: The patient was empirically started on IV antibiotics and had significant improveme nt in her symptoms. She did have some hypokalemia and it resolved while she was here. She was resus citated with IV fluids and kept n.p.o. Diet was gently advanced and she was able to tolerate without any nausea, vomiting, or worsening of abdominal pain. Her belly exam was benign. She was found to have sinus bradycardia while her stay in the hospital, for which Cardiology was cons ulted. Her pulse was anywhere from lowest 47 to highest of 56 in the bradycardia range. Echo was do ne. Dr. Kelley saw the patient and the patient was completely asymptomatic throughout the bradycardi a. No intervention was made necessary at this time as per Cardiology recommendation, as the patient was asymptomatic. She was discharged earlier today after finishing antibiotics, as she is asymptomatic and tolerating o f oral diet. She was given prescription of antibiotics as above. She is instructed to follow with [facility] physician. She was seen and examined prior to discharge. PHYSICAL EXAMINATION: VITAL SIGNS: Temperature 98.4, pulse of 52, respirations 18, saturating 99% on room air, blood press ure 122/75. No acute distress, awake, alert, oriented x3. CHEST: Clear to auscultation without any wheezing, rales, or rhonchi. HEART: Rate and rhythm is regular without murmurs, rubs, or gallops. ABDOMEN: Soft, nontender, nondistended. No rebound, guarding, or rigidity. EXTREMITIES: Free of any cyanosis, clubbing, or edema.
== END 2017-09-01 17:10 | disposition home or self-care (01) | DRG 392 ==
LOC: SCSER 23:05 → SURG A 08-29 02:19 → OBSVTOIN 08-29 02:19
PROVIDERS: ADMIT Hospitalist; ATTEND Hospitalist
DX: K52.9 Noninfective gastroenteritis and colitis, unspecified (principal); F41.9 Anxiety disorder, unspecified; F17.210 Nicotine dependence, cigarettes, uncomplicated; R31.9 Hematuria, unspecified; R00.1 Bradycardia, unspecified; E87.6 Hypokalemia; E83.39 Other disorders of phosphorus metabolism; Z82.49 Family history of ischemic heart disease and other diseases of the circulatory system
CPT/HCPCS: 36415; 36416; 74177; 80048; 80076; 83735; 84100; 85025; 93005; 93010; 93306; 96361; 96365; 96375; 96376; C9113; J0696; J0744; J2270; J2405; J2550; J7050

== ENCOUNTER 2017-09-27 13:13 | Emergency (ER) | payer BC ==
[2017-09-27 13:38] LABS: Bilirubin Moderate (Negative); Blood, Urine Moderate (Negative); Clarity Cloudy (Clear); Glucose, Urine (Dipstick) Negative (Negative); Leukocyte Negative (Negative); Nitrite Negative (Negative); Protein, Urine (Dipstick) 100 mg/dL (Neg-Trace); Specific Gravity, Urine Greater than 1.035 (1.002-1.036); Urobilinogen 0.2 mg/dL (0.2-1.0)
[2017-09-27 13:40] LABS: RBC/HPF GREATER THAN 50-TNTC HPF (0-3)
[2017-09-27 13:41] LABS: Hyaline Casts/LPF 0-3 HYALINE CAST LPF (0-3 Hyaline)
[2017-09-27 13:42] LABS: Pregnancy Test - Urine (BHCG) Negative (Negative); Pregu Control Background? CLEAR/WHITE (CLR/WHITE); Pregu Control Bar Appear? YES (CONTROL BAR); Specific Gravity Greater than 1.035 (1.002-1.036)
[2017-09-27 13:58] LABS: #Basophils 0.1 thou/uL (0.0-0.2); #Eosinphils 0.1 thou/uL (0.0-0.7); #Lymphocytes 1.5 thou/uL (1.20-3.40); #Monocytes 0.5 thou/uL (0.11-0.59); #Neutrophils 4.2 thou/uL (1.40-6.50); %Basophils 1.9 % (0.0-1.0); %Eosinophils 1.2 % (0.0-10.0); %Lymphocytes 23.9 % (21.0-51.0); Hemoglobin 12.5 g/dL (12.0-16.0); Mean Corpuscular Hemoglobin 27.9 pg (27.0-31.0); Mean Corpuscular Volume 84.6 fL (78.0-98.0); Mean Platelet Volume 9.4 fL (7.4-10.4); Platelet Count 172 thou/uL (130-400); RBC Distribution Width 13.5 % (11.5-14.5); Red Blood Cell (RBC) Count 4.47 mill/uL (4.20-5.40); White Blood Cell (WBC) Count 6.4 thou/uL (4.8-10.8)
[2017-09-27] MEDS ORDERED: Ondansetron HCl/PF 4 MG/2 ML Vial ONE (14:00)
[2017-09-27 14:15] LABS: ALT (SGPT) 9 U/L (8-55); AST (SGOT) 12 U/L (5-34); Albumin 4.1 g/dL (3.5-5.0); Alkaline Phosphatase 72 U/L (40-150); Anion Gap 15 mmol/L (10-20); BUN (Urea Nitrogen) 11 mg/dL (7.0-18.7); Bilirubin, Total 0.6 mg/dL (0.2-1.2); Calc. Creatinine Clearance 0 mL/min (70-130); Calcium 9.1 mg/dL (7.8-10.44); Carbon Dioxide 21 mmol/L (22-29); Chloride 106 mmol/L (98-107); Estimated GFR-MDRD Greater than 90; Globulin 2.5 g/dL (2.4-3.5); Glucose 70 mg/dL (70-105); Lipase 10 U/L (8-78); Potassium 3.6 mmol/L (3.5-5.1); Protein, Total 6.6 g/dL (6.0-8.3); Sodium 138 mmol/L (136-145)
== END 2017-09-27 14:36 | disposition home or self-care (01) ==
LOC: SCSER 13:13
DX: E86.0 Dehydration (principal); R53.1 Weakness; F17.210 Nicotine dependence, cigarettes, uncomplicated; F41.9 Anxiety disorder, unspecified
CPT/HCPCS: 80053; 81003; 81015; 81025; 83690; 85025; 93005; 96361; 96374; J2405

== ENCOUNTER 2017-10-04 00:30 | Emergency (ER) | payer BC ==
[2017-10-04 01:30] LABS: #Eosinphils 0.1 thou/uL (0.0-0.7); #Lymphocytes 2.2 thou/uL (1.20-3.40); #Monocytes 0.3 thou/uL (0.11-0.59); #Neutrophils 2.5 thou/uL (1.40-6.50); %Basophils 0.9 % (0.0-1.0); %Eosinophils 2.4 % (0.0-10.0); %Lymphocytes 42.5 % (21.0-51.0); %Monocytes 6.3 % (0.0-10.0); Hemoglobin 12.7 g/dL (12.0-16.0); Mean Corpuscular Hemoglobin 30.1 pg (27.0-31.0); Mean Corpuscular Volume 88.6 fL (78.0-98.0); Mean Platelet Volume 8.2 fL (7.4-10.4); Platelet Count 170 thou/uL (130-400); RBC Distribution Width 14.3 % (11.5-14.5); Red Blood Cell (RBC) Count 4.21 mill/uL (4.20-5.40); White Blood Cell (WBC) Count 5.1 thou/uL (4.8-10.8)
[2017-10-04 01:52] LABS: ALT (SGPT) 12 U/L (8-55); AST (SGOT) 13 U/L (5-34); Acetaminophen Less than 6.0 mcg/mL (10.0-30.0); Albumin 4.3 g/dL (3.5-5.0); Alcohol 55 mg/dL (Less than 10); Alkaline Phosphatase 66 U/L (40-150); Anion Gap 13 mmol/L (10-20); BUN (Urea Nitrogen) 7 mg/dL (7.0-18.7); Bilirubin, Total 0.3 mg/dL (0.2-1.2); Calc. Creatinine Clearance 0 mL/min (70-130); Calcium 9.1 mg/dL (7.8-10.44); Carbon Dioxide 21 mmol/L (22-29); Chloride 109 mmol/L (98-107); Estimated GFR-MDRD Greater than 90; Globulin 2.5 g/dL (2.4-3.5); Glucose 87 mg/dL (70-105); Potassium 3.4 mmol/L (3.5-5.1); Protein, Total 6.8 g/dL (6.0-8.3); Salicylate Less than 8.0 mg/dL (15.0-30.0); Sodium 140 mmol/L (136-145)
[2017-10-04 01:53] LABS: Alcohol 54 mg/dL (Less than 10); CK (CPK) 70 U/L (29-168)
[2017-10-04 02:42] LABS: Pregnancy Test - Urine (BHCG) Negative (Negative)
[2017-10-04 02:43] LABS: Bilirubin Negative (Negative); Blood, Urine Negative (Negative); Clarity CLEAR (Clear); Glucose, Urine (Dipstick) Negative (Negative); Leukocyte Negative (Negative); Nitrite Negative (Negative); Protein, Urine (Dipstick) Negative (Neg-Trace); Specific Gravity, Urine 1.009 (1.002-1.036); Urobilinogen 0.2 mg/dL (0.2-1.0)
[2017-10-04 02:47] LABS: Pregu Control Background? CLEAR/WHITE (CLR/WHITE); Pregu Control Bar Appear? YES (CONTROL BAR); Specific Gravity 1.009 (1.002-1.036)
[2017-10-04 02:50] LABS: Amphetamine Detected (NotDetected); Barbiturates Screen Not Detected (NotDetected); Benzodiazepine Screen Detected (NotDetected); Cocaine Metabolite Screen Not Detected (NotDetected); Medtox Control Line Valid? VALID (VALID); Medtox Reader # READER 4; Methadone Not Detected (NotDetected); Methamphetamine Detected (NotDetected); Opiate Screen Not Detected (NotDetected); Oxycodone Screen Not Detected (NotDetected); Phencyclidine (PCP) Not Detected (NotDetected); THC/Cannabinoid Screen Detected (NotDetected); Tricyclic Screen Not Detected (NotDetected)
== END 2017-10-04 04:44 | disposition home or self-care (01) ==
LOC: ERS 00:30
DX: F19.90 Other psychoactive substance use, unspecified, uncomplicated (principal); R45.851 Suicidal ideations; F41.9 Anxiety disorder, unspecified; F32.9 Major depressive disorder, single episode, unspecified; F17.210 Nicotine dependence, cigarettes, uncomplicated
CPT/HCPCS: 36415; 80053; 80306; 80307; 81003; 81025; 82550; 84443; 85025; 99285

== ENCOUNTER 2020-06-30 13:46 | Emergency (ER) | payer BC | END 2020-06-30 15:07 | disposition home or self-care (01) | LOC: ERS 13:46 | DX: M54.2 Cervicalgia (principal); M25.512 Pain in left shoulder; M25.511 Pain in right shoulder; F17.210 Nicotine dependence, cigarettes, uncomplicated; V49.9XXA Car occupant (driver) (passenger) injured in unspecified traffic accident, initial encounter | CPT/HCPCS: 72040; 99284 ==

== ENCOUNTER 2020-09-29 21:03 | Emergency (ER) | payer BC ==
[2020-09-29] MEDS ORDERED: Acetaminophen 500 MG TAB ONE (21:47)
[2020-09-29 22:39] LABS: Amphetamine Not Detected (NotDetected); Barbiturates Screen Not Detected (NotDetected); Benzodiazepine Screen Not Detected (NotDetected); Cocaine Metabolite Screen Not Detected (NotDetected); Methadone Not Detected (NotDetected); Methamphetamine Not Detected (NotDetected); Opiate Screen Not Detected (NotDetected); Oxycodone Screen Not Detected (NotDetected); Phencyclidine (PCP) Not Detected (NotDetected); THC/Cannabinoid Screen Detected (NotDetected); Tricyclic Screen Not Detected (NotDetected)
== END 2020-09-29 22:00 | disposition home or self-care (01) ==
LOC: ERS 21:03
DX: F12.10 Cannabis abuse, uncomplicated (principal); F17.210 Nicotine dependence, cigarettes, uncomplicated
CPT/HCPCS: 80306; 93005; 99282